=== PATIENT | female | born 1955 | race Hispanic/Latino ===

== ENCOUNTER 2021-12-21 23:47 | Emergency (ER) | payer MEDICARE ==
[~2021-12-21] VITALS: Ht 162.6 cm; Wt 68.9 kg
[2021-12-22] MEDS ORDERED: ACETAMINOPHEN 500 MG TABLET PO ONE (01:30)
[2021-12-22 01:42] VITALS: BP 138/75
[2021-12-22] MEDS ORDERED: ACET-2079 PO (02:37)
== END 2021-12-22 03:26 | disposition home or self-care (01) ==
LOC: EDH 23:47
DX: R51.9 Headache, unspecified (principal); M53.3 Sacrococcygeal disorders, not elsewhere classified; E03.9 Hypothyroidism, unspecified; E78.5 Hyperlipidemia, unspecified; V19.49XA Pedal cycle driver injured in collision with other motor vehicles in traffic accident, initial encounter; Y93.89 Activity, other specified; Y92.89 Other specified places as the place of occurrence of the external cause; Y99.8 Other external cause status
CPT/HCPCS: 70450; 72125; 72170; 72220